=== PATIENT | female | born 1965 | race African-American/Black ===

== ENCOUNTER → 2016-11-15 | Outpatient (CLI) | payer OTHER ==
--- NOTE | ~2016-11-15 | ST ---
Unit #: [id number] #: [id number] Patient: ZAINAB MARTINEZ [id number] [address] [address] [id number] O MR#: [id number] NAME: ZAINAB MARTINEZ : 1965 SEX: F STUDY DATE/TIME: 11/15/2016 UNIT: [facility] ROOM: STUDY DESCRIPTION: Imaging and EKG Attending Physician: Julio César Urbano M.D. Referring Physician: Julio César Urbano M.D. Primary Care Physician: Julio César Urbano M.D. CARDIOLOGY REPORT EXAM EKG as well as nuclear part of the test DESCRIPTION OF PROCEDURE AND FINDINGS The patient's baseline heart rate is 57 beats per minute, blood pressure 120/70. Patient exercised on a standard Ike protocol for 4 minutes, 52 seconds. She achieved peak heart rate of 171 beats per minute which represents 101% of predicted heart rate. Peak blood pressure is 138/80. The patient's baseline EKG is showing normal sinus rhythm, normal EKG. During exercise and recovery, no further ST and T changes. Patient also received 9.94 mCi of Cardiolite at rest and 32.1 mCi of Cardiolite during stress. Both sets of images were compared. Patient shows fairly uniform uptake of radiotracer. No defect was noted. Patient also has gated SPECT scan done which shows normal LV size and function. No wall motion abnormality detected. Ejection fraction is 65%. INTERPRETATION OF THE TEST 1. Average exercise tolerance. 2. Appropriate hemodynamic response. 3. EKG part of the test negative for stress-induced ischemia. 3. Nuclear part of the test negative for myocardial ischemia. 4. Gated SPECT scan shows normal left ventricular size and function. Dictated by... Senthil Smith/ronaldo TD: 11/15/2016 17:09 JOB #: [id number] Unit #: [id number] #: [id number] Patient: ZAIANB MARTINEZ CARDIOLOGY REPORT Page 1 of 1 X Julio César Urbano MD CARDIOLOGY REPORT
== END | disposition home or self-care (01) ==
LOC: CNUC 10-28 08:30
DX: R07.9 Chest pain, unspecified (principal)
CPT/HCPCS: 78452; 93017; 93306; A9500